=== PATIENT | male | born 1980 | race Caucasian/White ===

== ENCOUNTER 2016-11-09 17:20 | Emergency (ER) | payer MEDICARE | END 2016-11-09 19:04 | disposition home or self-care (01) | LOC: ER1 17:20 | DX: S39.012A Strain of muscle, fascia and tendon of lower back, initial encounter (principal); I10 Essential (primary) hypertension; F17.210 Nicotine dependence, cigarettes, uncomplicated; Z88.5 Allergy status to narcotic agent; Z88.6 Allergy status to analgesic agent; Z79.899 Other long term (current) drug therapy; Z90.49 Acquired absence of other specified parts of digestive tract; X58.XXXA Exposure to other specified factors, initial encounter | CPT/HCPCS: 72131; 96372; 99283; J2930 ==

== ENCOUNTER 2022-01-24 22:08 | Emergency (ER) | payer MEDICARE ==
[2022-01-25] MEDS ORDERED: CORTISPORIN OTI10 M1 EARRT (01:24)
== END 2022-01-25 01:53 | disposition home or self-care (01) ==
LOC: ER1 22:08
DX: H60.91 Unspecified otitis externa, right ear (principal); F17.210 Nicotine dependence, cigarettes, uncomplicated; I10 Essential (primary) hypertension; Z88.5 Allergy status to narcotic agent; Z88.6 Allergy status to analgesic agent
CPT/HCPCS: 99282